=== PATIENT | male | born 1980 | race Hispanic/Latino ===

== ENCOUNTER 2016-11-22 23:58 | Emergency (ER) | payer SELFPAY ==
--- NOTE | 2016-11-23 07:32 | Emergency Department Report ---
ED Rash HPI - HPI Chief Complaint: Extremity Injury, Lower Stated Complaint: LT AND RT FOOT SWELLING W/ODOR Time Seen by Provider: 11/23/16 07:03 Duration: weeks Location: Lower Extremities Suspected Cause: Other (poor hygiene) Rash Symptoms: Yes Peeling, No Facial Swelling, No Tongue/Oral Swelling, No Breathing Difficulties, No Choking Sensation, No Wheezing/Dyspnea, No Blistering , No Fever, No Lightheaded, No Malaise, No Myalgias Severity: mild ED Review of Systems ROS: Stated complaint: LT AND RT FOOT SWELLING W/ODOR Other details as noted in HPI Constitutional: denies: chills, fever Eyes: denies: eye pain, eye discharge, vision change ENT: denies: ear pain, throat pain Respiratory: denies: cough, shortness of breath, wheezing Cardiovascular: denies: chest pain, palpitations Endocrine: no symptoms reported Gastrointestinal: denies: abdominal pain, nausea, diarrhea Genitourinary: denies: urgency, dysuria Musculoskeletal: denies: back pain, joint swelling, arthralgia Skin: rash, change in hair/nails, other (patient complaining of bilateral foot pain, with extreme fairly bad odor. Patient states this is happened before due to poor hygiene. patient does not wear socks.). denies: lesions Neurological: denies: headache, weakness, paresthesias Psychiatric: denies: anxiety, depression Hematological/Lymphatic: denies: easy bleeding, easy bruising ED Past Medical Hx - Past Medical History Previous Medical History?: No - Surgical History Past Surgical History?: No - Social History Smoking Status: Current Every Day Smoker Substance Use Type: None - Medications Home Medications: Home Medications Medication Instructions Recorded Confirmed Last Taken Type Cephalexin [Keflex] 500 mg PO QID #40 capsule 11/23/16 Unknown Rx Nystatin [Nystop Powder] 1 applicatio TP BID #2 bottle 11/23/16 Unknown Rx Rash Exam - Exam General: Vital signs noted. No distress. Alert and acting appropriately. Both patient's feet are extremely dirty, odorous, with macerated callused tissue soles of feet which appears to be from wearing shoes without socks for extended periods of time. No lymphangitis or lymphadenopathy noted, no abscess noted. The patient's feet appear to have fungal infections, and may possibly be mildly cellulitic. Patient advised about proper foot hygiene, given antifungal powder for shoes, antibiotics for possible bacterial infection. HEENT: No Periorbital Edema, No Conjuctival Injection, No Chemosis, No Perioral Edema, No Tongue Edema, No Uvular Edema, No Compromised Airway, No Drooling Lungs: No Good Air Exchange, No Wheezes, No Ronchi, No Stridor, No Cough, No Labored Respirations, No Retractions, No Use of Accessory Muscles, No Other Abnormal Lung Sounds Skin: Yes Tenderness, Yes Erythema Other: Positive: Abdomen Normal, Neurologic Normal, Musculoskeletal Normal ED Course Vital Signs 11/23/16 01:21 Temperature 97.9 F Pulse Rate 96 H Respiratory 18 Rate Blood Pressure 126/75 Blood Pressure 126/75 [Right] O2 Sat by Pulse 98 Oximetry Critical care attestation.: If time is entered above; I have spent that time in minutes in the direct care of this critically ill patient, excluding procedure time. ED Disposition Clinical Impression: Tinea pedis Disposition: DISCHARGED TO HOME OR SELFCARE Is pt being admited?: No Condition: Stable Instructions: Tinea Pedis (ED) Prescriptions: Cephalexin [Keflex] 500 mg PO QID #40 capsule Nystatin [Nystop Powder] 1 applicatio TP BID #2 bottle Referrals: PRIMARY CARE, [Primary Care Provider] - 3-5 Days CATRACHITA LEVIN MD [Staff Physician] - 3-5 Days
[2016-11-23 08:16] VITALS: BP 101/60
== END 2016-11-23 08:16 | disposition home or self-care (01) ==
LOC: ED 23:58
DX: B35.3 Tinea pedis (principal); F17.200 Nicotine dependence, unspecified, uncomplicated
CPT/HCPCS: 99282

== ENCOUNTER 2016-11-23 23:46 | Emergency (ER) | payer OTHER ==
[2016-11-24 02:23] LABS: Basophils % (Auto) 0.5 % (0.0-1.8); Eosinophils % (Auto) 3.9 % (0.0-4.3); Hematocrit 38.8 % (35.5-45.6); Hemoglobin 13.2 gm/dl (11.8-15.2); Mean Corpuscular HGB Conc 34 % (32-34); Mean Corpuscular Hemoglobin 29 pg (28-32); Mean Corpuscular Volume 86 fl (84-94); Platelet Count 199 K/mm3 (140-440); Red Blood Count 4.52 M/mm3 (3.65-5.03); Red Cell Distribution Width 13.4 % (13.2-15.2)
[2016-11-24 02:49] LABS: Anion Gap 16 mmol/L; BUN/Creatinine Ratio 18.57; Blood Urea Nitrogen 13 mg/dL (9-20); Carbon Dioxide 27 mmol/L (22-30); Chloride 100.7 mmol/L (98-107); Glucose 154 mg/dL (75-100); Potassium 3.7 mmol/L (3.6-5.0); Sodium 140 mmol/L (137-145)
[2016-11-24] MEDS ORDERED: NACL 0.9% 1000 ML 1,000 ML IV ONE (11:32)
[2016-11-24] MEDS ORDERED: ATIVAN IV ONE (11:32)
--- NOTE | 2016-11-24 12:07 | Emergency Department Report ---
ED Psych HPI - General Chief Complaint: Psych Stated Complaint: MH EVAL/SUICIDAL THOUGHTS/L FOOT PAIN Time Seen by Provider: 11/24/16 11:24 Source: patient Mode of arrival: Ambulatory - History of Present Illness Initial Comments: Patient states he has a crystal meth problem, is homeless, and feels like killing himself by jumping into traffic. Patient states he has had one suicide attempt years ago. She denies any visual or auditory hallucinations. MD Complaint: suicidal ideation Associated Psychiatric Symptoms: suicidal ideation, racing thoughts Improves With: none Context: recent drug abuse Associated Symptoms: insomnia. denies: confusion, headache, shortness of breath , syncope If Self Harm: admits thoughts of, has plan - Related Data Previous Rx's Medication Instructions Recorded Last Taken Type Cephalexin [Keflex] 500 mg PO QID #40 capsule 11/23/16 Unknown Rx Nystatin [Nystop Powder] 1 applicatio TP BID #2 bottle 11/23/16 Unknown Rx Allergies Allergy/AdvReac Type Severity Reaction Status Date / Time No Known Allergies Allergy Unverified 11/23/16 01:30 ED Review of Systems ROS: Stated complaint: MH EVAL/SUICIDAL THOUGHTS/L FOOT PAIN Other details as noted in HPI Constitutional: denies: chills, fever Eyes: denies: eye pain, eye discharge, vision change ENT: denies: ear pain, throat pain Respiratory: denies: cough, shortness of breath, wheezing Cardiovascular: denies: chest pain, palpitations Endocrine: no symptoms reported Gastrointestinal: denies: abdominal pain, nausea, vomiting, diarrhea, constipation, hematemesis, melena, hematochezia Genitourinary: denies: urgency, dysuria Musculoskeletal: denies: back pain, joint swelling, arthralgia Skin: denies: rash, lesions Neurological: denies: headache, weakness, numbness, paresthesias, confusion, abnormal gait, vertigo Psychiatric: anxiety, depression, suicidal thoughts. denies: auditory hallucinations, visual hallucinations, homicidal thoughts Hematological/Lymphatic: denies: easy bleeding, easy bruising ED Past Medical Hx - Past Medical History Previous Medical History?: Yes Hx Psychiatric Treatment: Yes (bipolar, depression) - Surgical History Past Surgical History?: No - Social History Smoking Status: Current Every Day Smoker Substance Use Type: None - Medications Home Medications: Home Medications Medication Instructions Recorded Confirmed Last Taken Type Cephalexin [Keflex] 500 mg PO QID #40 capsule 11/23/16 Unknown Rx Nystatin [Nystop Powder] 1 applicatio TP BID #2 bottle 11/23/16 Unknown Rx ED Physical Exam - General Limitations: No Limitations General appearance: alert, in no apparent distress - Head Head exam: Present: atraumatic, normocephalic - Eye Eye exam: Present: normal appearance, PERRL, EOMI - ENT ENT exam: Present: mucous membranes moist - Neck Neck exam: Present: normal inspection, full ROM. Absent: tenderness, meningismus, lymphadenopathy - Respiratory Respiratory exam: Present: normal lung sounds bilaterally. Absent: respiratory distress, wheezes, rales, rhonchi, stridor, accessory muscle use - Cardiovascular Cardiovascular Exam: Present: regular rate. Absent: systolic murmur, diastolic murmur, rubs, gallop - GI/Abdominal GI/Abdominal exam: Present: soft, normal bowel sounds. Absent: distended, tenderness, guarding, rebound, rigid - Rectal Rectal exam: Present: deferred - Extremities Exam Extremities exam: Present: normal inspection, other (bilateral tinea pedis, no lymphangitis or lymphadenopathy noted.) - Back Exam Back exam: Present: normal inspection - Neurological Exam Neurological exam: Present: alert, oriented X3 - Psychiatric Psychiatric exam: Present: depressed, suicidal ideation. Absent: homicidal ideation - Skin Skin exam: Present: warm, dry, intact, normal color. Absent: rash ED Course Vital Signs 11/24/16 11/24/16 01:48 05:50 Temperature 98 F 98.9 F Pulse Rate 79 76 Respiratory 20 18 Rate Blood Pressure 123/77 109/68 O2 Sat by Pulse 98 75 L Oximetry - Reevaluation(s) Reevaluation #1: 11/24/16 14:54 Patient's sleeping normotensive normocardic. ED Medical Decision Making - Lab Data Result diagrams: 11/24/16 02:04 11/24/16 02:04 - Medical Decision Making Patient been medically cleared for psychiatric admission due to suicidal ideation and placement by mental health Critical care attestation.: If time is entered above; I have spent that time in minutes in the direct care of this critically ill patient, excluding procedure time. ED Disposition Clinical Impression: Suicidal ideation Disposition: DC/TX PSY HOSP/PSY UNIT Is pt being admited?: Yes Condition: Stable Referrals: PRIMARY CARE, [Primary Care Provider] - 3-5 Days
[2016-11-24] MEDS ORDERED: TRIPLE ANTIBIOTIC TP ONE (23:08)
[2016-11-24 23:09] LABS: Urine Drugs of Abuse Note Disclamer
[2016-11-24 23:17] LABS: Bilirubin,Urine NEG (Negative); Blood,Urine NEG (Negative); Ketones,Urine NEG (Negative); Leukocyte Esterase,Urine TR (Negative); Mucus,Urine 3+ /HPF; Nitrite,Urine NEG (Negative)
--- NOTE | 2016-11-25 07:17 | XRay Report ---
Left ankle 2 views: History: Swollen ankle. Findings: Generalized osteopenia. Arthritic changes at the ankle joint. No fracture or dislocation. Soft tissue swelling. Impression: No evidence of acute fracture.
--- NOTE | 2016-11-25 17:35 | Consultation ---
History of Present Illness - Reason for Consult Consult date: 11/25/16 Reason for consult: Mental Health Evaluation Requesting physician: TAZ HARMAN - Chief Complaint Chief complaint: "I want help for the drugs" - History of Present Psychiatric Illness 36 y.o. white male with a hx of crystal meth use presenting to [facility] with SI's. Today is calm and cooperative. He stated that he had SI to walk into ongoing traffic prior to coming to [facility]. He stated that his life is all "screwed up." He stated that he want help to get off the meth. He stated that he feel very sad and hopeless at this. Per the patient he failed multiple rehab services (in/ outpatient). He stated that he is committed to completing the next rehab treatment. He stated that he would like to go back [facility] that's locally. He stated that he relapsed in the program in the past and didn't finish. He denies SI/HI's, AVH's, sleep disturbance or a poor appetiete. He stated when he get "down" on himself he use more meth. He denies alcohol consumption (etoh). Medications and Allergies Allergies Allergy/AdvReac Type Severity Reaction Status Date / Time No Known Allergies Allergy Unverified 11/23/16 01:30 Home Medications Medication Instructions Recorded Confirmed Last Taken Type Cephalexin [Keflex] 500 mg PO QID #40 capsule 11/23/16 Unknown Rx Nystatin [Nystop Powder] 1 applicatio TP BID #2 bottle 11/23/16 Unknown Rx Past psychiatric history - Past Medical History Past Medical History: No medical history Past Surgical History: No surgical history - past Psychiatric treatment and history Psych: Depression psychiatric treatment history: Multiple inpatient psy services for drug rehab. Denies a fam psy hx. - Social History Social history: other ([facility] grad[facility], homeless) Mental Status Exam - Vital signs Last Vital Signs Temp 98.6 F 11/25/16 09:52 Pulse 78 11/25/16 09:52 Resp 18 11/25/16 09:52 BP 111/70 11/25/16 09:52 Pulse Ox 98 11/25/16 09:52 - Exam Narrative exam: ROS: (+) depression MSE: Appearance: cooperative, calm Behavior: poor eye contact Speech: regular rate and tone Mood: "not gaood" Affect: congruent to mood Thought Process: linear Thought Content: denies HI's and VH's Motor Activity: lying in bed Cognition: a/ox 3 Insight: fair Judgment: limited Results Result Diagrams: 11/24/16 02:04 11/24/16 02:04 All other labs normal. Assessment and Plan Assessment and plan: Impression: MDD Sever Type, Substance Use DO (methamphetamines). 36 y.o. white male with a hx of crystal meth use presenting to [facility] with SI's. Today is calm and cooperative. He stated that he had SI to walk into ongoing traffic prior to coming to [facility]. He stated that his life is all "screwed up." He stated that he want help to get off the meth. He stated that he feel very sad and hopeless at this time. Per the patient he failed multiple rehab services (in/outpatient). He denies SI/HI's and AVH's. Positive for amphetamines. Recommendation/Plan: Evaluate 1013 in 24 hours to determine proper dispo. Start Zoloft 50 mg PO daily for depression. Discussed possible suicidality and medication induced jasson reference antidepressants.
[2016-11-25] MEDS: ZOLOFT PO SCH (19:02)
[2016-11-26] MEDS: ZOLOFT PO SCH (10:12)
--- NOTE | 2016-11-26 17:30 | Progress Note ---
Subjective - Reason for Consult Consult date: 11/26/16 Reason for consult: psychiatric follow up - Chief Complaint Chief complaint: "I need rehab" 36 y.o. white male with a hx of crystal meth use initially presented to [facility] with SI. He does not present as an imminent risk of harm to self. Today is calm and cooperative. He stated that he wants help to get off the meth, but wants to seek rehab, not inpatient mental health treatment. He denies suicidal or homicidal ideation. No psychotic symptoms. None elicited. He is adamant to say he does not want to harm himself. Mental Status Exam - Vital signs Last Vital Signs Temp 97.8 F 11/26/16 07:25 Pulse 77 11/26/16 07:25 Resp 16 11/26/16 09:20 BP 123/84 11/26/16 07:25 Pulse Ox 99 11/26/16 09:20 - Exam Narrative exam: Appearance: cooperative, calm Behavior: poor eye contact Speech: regular rate and tone Mood: neutral Affect: congruent to mood Thought Process: linear Thought Content: no SI, no HI, no AVH Motor Activity: no abnormal movements Cognition: a/ox 3 Insight: fair Judgment: limited Assessment and Plan Impression: MDD Sever Type, Substance Use DO (methamphetamines). 36 y.o. white male with a hx of crystal meth use initially presented to [facility] with SI. He currently does not have thoughts of harming himself and has not for over 24 hours. He does not present as an imminent risk of harm to self. Today is calm and cooperative. He stated that he wants help to get off the meth, but wants to seek rehab, not inpatient mental health treatment. Recommendation/Plan: Rescind 1013 and follow up with outpatient substance abuse program. He plans to go to [facility]. Recommend ongoing psychiatric care outpatient or within the rehab treatment.
[2016-11-26 20:39] VITALS: BP 117/68
--- NOTE | 2016-11-27 22:50 | Progress Note ---
Subjective - Reason for Consult Consult date: 11/27/16 Reason for consult: psychiatric follow up - Chief Complaint Chief complaint: "I need rehab" 36 y.o. white male with a hx of crystal meth use initially presented to [facility] with SI. He does not present as an imminent risk of harm to self. Today is calm and cooperative. He stated that he wants help to get off the meth, but wants to seek rehab, not inpatient mental health treatment. He denies suicidal or homicidal ideation. No psychotic symptoms. None elicited. He is adamant to say he does not want to harm himself. [id number] Mental Status Exam - Vital signs Last Vital Signs Temp 98 F 11/26/16 20:38 Pulse 67 11/26/16 20:38 Resp 18 11/26/16 20:38 BP 117/68 11/26/16 20:38 Pulse Ox 98 11/26/16 20:38
== END 2016-11-26 20:40 | disposition home or self-care (01) ==
LOC: EEVIPCON 23:46 → ED 23:46
DX: R45.851 Suicidal ideations (principal); F32.9 Major depressive disorder, single episode, unspecified; G47.00 Insomnia, unspecified; F31.9 Bipolar disorder, unspecified; F17.200 Nicotine dependence, unspecified, uncomplicated
CPT/HCPCS: 36415; 73600; 80048; 80307; 81001; 85025; 96361; 96374; 99284; G0480; J2060; J7030; 80320; A6250